=== PATIENT | female | born 1960 | race African-American/Black ===

== ENCOUNTER 2019-01-03 19:04 | Emergency (ER) | payer BC ==
[~2019-01-03] VITALS: Ht 154.9 cm; Wt 111.6 kg
[2019-01-03] MEDS ORDERED: ASPI81TA31 PO (19:17)
[2019-01-03] MEDS ORDERED: ALBU8HFA4 IH (19:17)
[2019-01-03] MEDS ORDERED: MOME13HF IH (19:17)
--- NOTE | 2019-01-03 19:30 | NUR ---
Dr. Gonzalez at bedside for MSE.
--- NOTE | 2019-01-03 19:50 | NUR ---
Patient provided urine sample, sent to lab.
[2019-01-03 19:51] LABS: BASOPHILS # (AUTO) 0.1 K/uL (0.0-8.0); BASOPHILS % (AUTO) 0.6 % (0.0-2.0); EOSINOPHILS # (AUTO) 0.6 K/uL (0.0-0.7); EOSINOPHILS % (AUTO) 6.2 % (0.0-7.0); HEMATOCRIT 38.2 % (31.2-41.9); LYMPHOCYTES # (AUTO) 2.5 K/uL (20.0-40.0); LYMPHOCYTES % (AUTO) 26.3 % (20.5-51.5); MEAN CORPUSCULAR HEMOGLOBIN 28.7 uug (24.7-32.8); MEAN CORPUSCULAR HGB CONC 34 g/dL (32.3-35.6); MEAN CORPUSCULAR VOLUME 84.6 fL (75.5-95.3); MONOCYTES # (AUTO) 0.6 K/uL (2.0-10.0); MONOCYTES % (AUTO) 6.8 % (0.0-11.0); NEUTROPHILS # (AUTO) 5.7 K/uL (1.8-8.9); NEUTROPHILS % (AUTO) 60.1 % (38.5-71.5); PLATELET COUNT (AUTO) 237 K/uL (179-408); RED BLOOD CELL COUNT(AUTO) 4.51 MIL/uL (3.63-4.92); WHITE BLOOD COUNT (AUTO) 9.5 K/uL (3.8-11.8)
--- NOTE | 2019-01-03 19:53 | NUR ---
Xray at bedside.
[2019-01-03 20:00] LABS: CREATININE 0.7 mg/dL (0.6-1.3)
[2019-01-03 20:02] LABS: *BILIRUBIN,URIN NEGATIVE (NEGATIVE); *CLARITY,URINE CLEAR (CLEAR); *COLOR,URINE YELLOW (YELLOW); *KETONES,URINE NEGATIVE (NEGATIVE); *UROBILINOGEN,URINE 0.2 E.U./dl (NORMAL); LEUKOCYTE ESTERASE ,URINE NEGATIVE (NEGATIVE); NITRITE, URINE NEGATIVE (NEGATIVE); UGLUCOSE NEGATIVE (NEGATIVE)
[2019-01-03 20:05] LABS: BILIRUBIN,DIRECT 0.1 mg/dL (0.0-0.2); BILIRUBIN,TOTAL 0.3 mg/dL (0.2-1.0); TOTAL PROTEIN, SERUM 7.8 g/dL (6.4-8.2)
--- NOTE | 2019-01-03 20:08 | NUR ---
Patient out of ER for CT.
[2019-01-03 20:13] LABS: *BLOOD, URINE TRACE (NEGATIVE)
[2019-01-03 20:15] LABS: BACTERIA,URINE FEW /HPF (NONE SEEN); SQUAMOUS EPITHELIAL CELL,UR FEW /HPF (NONE SEEN); WBC,URINE 0-3 /HPF (0-3)
--- NOTE | 2019-01-03 21:16 | NUR ---
Patient discharged to home in stable conditon. Written and verbal after care instructions given. Patient verbalizes understanding of instructions. Patient ambulated out of ER with steady gait, no acute signs of distress, VSS, all belongings taken, provided with copies of diagnostic procedures.
[2019-01-03 21:18] VITALS: BP 154/66
== END 2019-01-03 21:18 | disposition home or self-care (01) ==
LOC: ER 19:06 → EDBD 19:06 → ER 21:18
DX: M54.12 Radiculopathy, cervical region (principal); J45.909 Unspecified asthma, uncomplicated; Z79.82 Long term (current) use of aspirin; Z79.899 Other long term (current) drug therapy; Z86.73 Personal history of transient ischemic attack (TIA), and cerebral infarction without residual deficits; Z88.8 Allergy status to other drugs, medicaments and biological substances
CPT/HCPCS: 36415; 70030-TC; 70450; 71045; 83690; 85025; 85730; 87086; 93005; A4663

== ENCOUNTER 2019-02-09 23:19 | Emergency (ER) | payer BC ==
[~2019-02-09] VITALS: Ht 154.9 cm; Wt 112.5 kg
[~2019-02-09 23:19] MED LIST: ALBU8HFA4 IH; ASPI81TA31 PO; MOME13HF IH
--- NOTE | 2019-02-09 23:45 | NUR ---
Pt walks into ER with c/o shortness of breath that started at approximately 2100 today. Hx of asthma. Pt states she used her albuterol 6 to 8 puffs over a 3 hr period, but with minimal relief. pt placed to room 05A. SA02 98% room air.
[2019-02-10] MEDS ORDERED: methylPREDNISolone SOD SUCC 125 MG/2 ML VIAL IV ONE
[2019-02-10] MEDS ORDERED: MAGNESIUM SULFATE 2 GM in IV DEXTROSE 5% 100 ML IV ONE ×2
[2019-02-10] MEDS ORDERED: MAGNESIUM SULFATE 1 GM/2 ML VIAL ONE ×2 (00:22→00:28)
[2019-02-10] MEDS ORDERED: methylPREDNISolone SOD SUCC 125 MG/2 ML VIAL ONE (00:22)
[2019-02-10] MEDS ORDERED: MAGNESIUM SULFATE/D5W 100 ML ONE (00:22)
--- NOTE | 2019-02-10 00:50 | NUR ---
Pt receiving continuous breathing tx. Magnesium sulfate infusing. No acute distress noted.
[2019-02-10] MEDS ORDERED: ALBUTEROL SULFATE 2.5 MG/3 ML NEBU NEB ONE ×3 (02:00→04:00)
[2019-02-10] MEDS ORDERED: ALBUTEROL SULFATE 2.5 MG/3 ML NEBU ONE (03:54)
--- NOTE | 2019-02-10 04:20 | NUR ---
Pt states she feels better.
--- NOTE | 2019-02-10 04:35 | NUR ---
IV removed. Catheter intact and site benign. Pressure and 4x4 gauze applied to site. No bleeding noted.
--- NOTE | 2019-02-10 04:36 | NUR ---
Patient discharged to home in stable conditon. Written and verbal after care instructions given. Patient verbalizes understanding of instructions. Pt left ER in stable gait. All belongings w pt. VSS. No acute distress noted.
[2019-02-10 04:38] VITALS: BP 111/69
== END 2019-02-10 04:40 | disposition home or self-care (01) ==
LOC: ER 23:23
DX: J45.909 Unspecified asthma, uncomplicated (principal); Z86.73 Personal history of transient ischemic attack (TIA), and cerebral infarction without residual deficits; Z88.8 Allergy status to other drugs, medicaments and biological substances; Z79.899 Other long term (current) drug therapy
CPT/HCPCS: 93005; 94640; 94644; 94645; 96365; 96366; 96375; 99285; J2930; J3475 ×2; J7060; A4663